=== PATIENT | female | born 1975 | race Caucasian/White ===

== ENCOUNTER 2023-09-01 08:08 | Emergency (ER) | payer OTHER ==
[~2023-09-01] VITALS: Ht 162.6 cm; Wt 107.0 kg
[2023-09-01 08:20] VITALS: BP 129/84; PULSE 91; TEMP 98; O2SAT 100
[2023-09-01] MEDS: ACETAMINOPHEN 500MG TABLET PO ONE (09:05)
[2023-09-01 09:40] VITALS: RESP 16
== END 2023-09-01 09:45 | disposition home or self-care (01) ==
LOC: ER 08:08
DX: M79.602 Pain in left arm (principal); K21.9 Gastro-esophageal reflux disease without esophagitis; Z98.890 Other specified postprocedural states; W18.39XA Other fall on same level, initial encounter; Y93.89 Activity, other specified; Y92.89 Other specified places as the place of occurrence of the external cause; Y99.8 Other external cause status
CPT/HCPCS: 73030; 73060; 73070; 81025; 99284